=== PATIENT | female | born 1990 | race Caucasian/White ===

== ENCOUNTER 2016-10-11 05:19 | Day surgery (SDC) | payer OTHER ==
[~2016-10-11] VITALS: Ht 160 cm; Wt 76.0 kg
[~2016-10-11 05:19] MED LIST: COLACE100 MG PO; FEOSOL325 MG PO; IBUPROFEN800 MG PO; MOTRIN800 MG PO; NO HOME MEDS; PRENATAL TABLE1 EAC3 PO; ZANTAC150 MG PO
[2016-10-11 05:48] VITALS: BP 108/67
[2016-10-11 07:50] LABS: METH RESISTANT S AUREUS PCR NEGATIVE (NEGATIVE)
[2016-10-11 07:51] LABS: PROBE CHECK PASS; SPECIMEN PROCESSING CONTROL PASS
[2016-10-11] MEDS ORDERED: ENDOCET 5-3251 EACH PO (08:29)
[2016-10-11 09:35] VITALS: BP 116/74
[2016-10-11 10:31] VITALS: BP 114/73
[2016-10-11 11:29] VITALS: BP 108/70
== END 2016-10-11 11:39 | disposition home or self-care (01) ==
LOC: SDC 05:19
PROVIDERS: Obstetrics & Gynecology Obstetrics
PROC: 0UL74CZ Occlusion of Bilateral Fallopian Tubes with Extraluminal Device, Percutaneous Endoscopic Approach (ICD-10-PCS; principal; 2016-10-11)
DX: Z30.2 Encounter for sterilization (principal); Z86.14 Personal history of Methicillin resistant Staphylococcus aureus infection; Z82.0 Family history of epilepsy and other diseases of the nervous system
CPT/HCPCS: 87641; J0330; J1100; J1170; J1885; J2250; J2405; J3010; S0020